=== PATIENT | male | born 1950 | race Caucasian/White ===

== ENCOUNTER 2016-10-16 07:28 | Emergency (ER) | payer OTHER ==
[~2016-10-16] VITALS: Ht 175.3 cm; Wt 72.1 kg
[2016-10-16 07:31] VITALS: BP 142/88
== END 2016-10-16 07:53 | disposition left against medical advice (07) ==
LOC: ER 07:28
DX: M25.512 Pain in left shoulder (principal); M25.522 Pain in left elbow

== ENCOUNTER 2019-01-04 14:39 | Emergency (ER) | payer OTHER ==
[~2019-01-04] VITALS: Ht 175.3 cm; Wt 68.0 kg
[2019-01-04 14:41] VITALS: BP 138/87
== END 2019-01-04 14:58 | disposition home or self-care (01) ==
LOC: ER 14:39
DX: S50.811A Abrasion of right forearm, initial encounter (principal); W54.0XXA Bitten by dog, initial encounter; Y92.89 Other specified places as the place of occurrence of the external cause; Y93.89 Activity, other specified; Y99.8 Other external cause status